=== PATIENT | male | born 1960 | race Caucasian/White ===

== ENCOUNTER 2024-10-09 09:00 | Emergency (ER) | payer MEDICARE, OTHER, SELFPAY ==
[2024-10-09 09:02] VITALS: BP 137/84
[2024-10-09 09:55] VITALS: BMI 25.9
--- NOTE | 2024-10-09 10:30 | ED.MUSCINJ ---
HPI-Injury
General
Chief Complaint: Musculo-Skeletal Complaint
Time Seen by Provider: 10/09/24 09:59
History of Present Illness-Injury
Initial Injury comments:
Patient is a 64-year-old male with past medical history of prior CVA with residual right-sided deficits, asthma, and hypertension, here today for evaluation after he sustained a mechanical fall at home yesterday. He reports landing along his right
wrist. No injuries or pain noted elsewhere. Patient states the fall was mechanical. He has since had mild middle wrist pain in the right side along the middle dorsum. He also endorses mild swelling and ecchymosis along the distal tips of his
lateral fingers along the right side. He suffered small abrasions. Tetanus vaccination is up-to-date.
Review of Systems
Review of Systems
All Other Systems: ROS reviewed and negative except as documented in HPI and ROS
Phy Exam
Physical Exam
Physical Exam:
GENERAL: Alert , in no apparent distress
EYE: pupils equal and reactive
NECK: Supple
NEUROLOGICAL: Alert and oriented, no focal neuro deficits
SKIN: Warm and dry, skin intact.
MUSCULOSKELETAL: Mildly tender along the middle dorsum of the right wrist with mild swelling, no deformities, there is also mild tenderness along the distal tips of the lateral fingers along the right hand along the 4th through 5th with mild
ecchymosis distally and small abrasions, no active bleeding, pulses 2+ throughout, sensation intact, motor limited secondary to prior CVA
PSYCH: Normal and appropriate interaction.
Injury Course
Orders/Labs/Results
Orders:
Orders
10/09/24 09:04
Wrist, Right 3 Views [CR Wrist - Right Min 3 Views] Urgent
Comment:
Reason For Exam: wrist injury
MDM/Problems Addressed
Differential Diagnosis Includes:
Patient is a 64-year-old male with past medical history of prior CVA with residual right-sided deficits, asthma, and hypertension, here today for evaluation after he sustained a mechanical fall at home yesterday. Overall, patient appears very well.
Vital signs grossly within normal limits. Physical examination described above. On examination the patient is mildly tender along the middle dorsum of the right wrist with mild swelling. No deformities. There is also mild tenderness along the
distal tips of the lateral fingers along the right hand along the 4th through 5th with mild ecchymosis distally and small abrasions. No active bleeding. X-rays were obtained of the wrist which reveal swelling without evidence of fracture or
dislocation. X-rays were not performed of the right hand. Discussed findings with patient. Discussed additional x-rays of the hand but patient declined. Patient has a premade volar splint already and I recommend to continue to wear this.
Recommend supportive measures and close follow-up. Return precautions given for worsening symptoms. All questions answered. Stable for discharge.
*Critical Care Note
Total Time (30-74mins, 75-104mins- exclusive of procedures): Not Applicable
ED Attending Note
-
Portions of this chart may have been created with voice recognition software.� Occasional wrong word or��sound alike� substitutions may have occurred due to the inherent limitations of voice recognition software.
Discharge Plan
Departure
Patient Disposition: Home (Routine Discharge)
Date of Disposition: 10/09/24
Time of Disposition: 10:35
Patient with high blood pressure during this ER visit?: No
Condition: Good
Covid-19: Not Applicable
Discharge Problem:
Acute pain of right wrist, Abrasion of finger of right hand, Fall
Instructions: Wrist Sprain ED
Prescriptions:
No Action
acetaminophen 325 MG tablet
650 mg PO Q6HPRN PRN (Reason: mild pain) 0RF
dextromethorphan-guaifenesin 10 ML syrup
5 ml PO Q6HPRN PRN (Reason: cough/congestion) 0RF
trazodone 100 MG tablet
100 mg PO HS 0RF
gabapentin 300 MG capsule
300 mg PO TID 0RF
fluticasone propionate 1 SPRAY spray,suspension
2 sprays intranasal DAILY 0RF
loratadine 10 MG tablet
10 mg PO DAILY Qty: 0 0RF
enoxaparin 40 MG/0.4 ML syringe
40 mg SC QPM 0RF
fluticasone propion-salmeterol [Advair HFA] 1 PUFF HFA aerosol inhaler
2 puff inhalation R BID 0RF
Referrals:
Flaca Miles, [Family Provider] - Follow up in 5-7 days
Activity Restrictions/Additional Instructions:
You were seen today for evaluation after you sustained a fall.
We obtained x-rays of your right wrist which reveal mild swelling without broken bones or dislocations.
Remain in the premade brace.
Ice the area 20 minutes on 20 minutes off. Take [id number] Tylenol as directed as needed. Rest. Avoid heavy lifting.
Follow-up with your doctor within the next 3 to 5 days for close reevaluation. Return for any new, worsening, or concerning symptoms.
Interventions
Interventions:
*Risk Screen - Suicide Last Done: 10/09/24 09:04
*Neglect/Abuse Screening Last Done: 10/09/24 09:04
ED-Musculoskeletal Assessment Last Done: 10/09/24 09:56
Discharge Date and Time
Print Language: GERMAN
== END 2024-10-09 10:46 | disposition home or self-care (01) ==
LOC: EMR 09:00
PROVIDERS: EMERGENCY PHYSICIAN Emergency Medicine; FAMILY PHYSICIAN Hospitalist
DX: M25.531 Pain in right wrist (principal); S60.419A Abrasion of unspecified finger, initial encounter; W19.XXXA Unspecified fall, initial encounter; J45.909 Unspecified asthma, uncomplicated; I10 Essential (primary) hypertension
CPT/HCPCS: 99283; 73110

== ENCOUNTER → 2025-05-03 10:36 | Outpatient (REF) | payer MEDICARE, OTHER, SELFPAY ==
[2025-05-03 11:04] LABS: % Basophils 0.6 % (0-2); % Eosinophils 3.3 % (0-6); % Immature Granulocytes 0.2 % (0-0.5); % Lymphocytes 25.4 % (20.5-51.1); % Monocytes 10.2 % (1.7-9.3); % Neutrophils 60.3 % (42.2-75.2); Absolute Eosinophils 0.2 10^3/uL (0-0.7); Absolute Lymphocytes 1.2 10^3/uL (1.2-3.4); Absolute Monocytes 0.5 10^3/uL (0.1-0.6); Absolute Neutrophils 2.9 10^3/uL (1.4-6.5); Hematocrit 45.4 % (39.0-52.0); Mean Corpuscular Hgb 29.6 pg (27.0-31.0); Mean Corpuscular Volume 89.7 fL (80.0-94.0); Nucleated Red Blood Cells % 0 % (-); Platelet Count 205 10^3/uL (130-400); Red Blood Cell Count 5.06 10^6/uL (4.70-6.10); Red Cell Dist. Width 12.3 % (11.5-14.5); White Blood Cell Count 4.8 10^3/uL (4.8-10.8)
[2025-05-03 15:18] LABS: ALT (SGPT) 37 U/L (0-50); AST (SGOT) 31 U/L (17-59); Albumin 4.6 g/dl (3.5-5.0); Alkaline Phosphatase 70 U/L (38-126); Blood Urea Nitrogen 13 mg/dl (9-20); Carbon Dioxide 23 mmol/L (22-30); Chloride 108 mmol/L (98-107); Glucose 88 mg/dl (70-99); HDL Cholesterol 48 mg/dl; LDL Cholesterol, Calculated 80 mg/dl; Potassium 3.8 mmol/L (3.5-5.1); Sodium 142 mmol/L (135-145); Total Bilirubin 1.7 mg/dl (0.2-1.3); Total Cholesterol 160 mg/dl (50-199); Total Protein 6.7 g/dl (6.3-8.2); Triglyceride 163 mg/dl (10-149); Very Low Density Lipoprotein 32 mg/dl (0-30); eGFR > 60.00
[2025-05-06 01:53] LABS: Keppra (Levetiracetam) 17 ug/mL (10-40)
== END ==
LOC: CLAB 10:36
PROVIDERS: ATTENDING PHYSICIAN Hospitalist
DX: I10 Essential (primary) hypertension (principal); Z86.73 Personal history of transient ischemic attack (TIA), and cerebral infarction without residual deficits; R56.9 Unspecified convulsions; I25.9 Chronic ischemic heart disease, unspecified
CPT/HCPCS: 36415; 80053; 80061; 80177; 85025